=== PATIENT | female | born 1970 | race Caucasian/White ===

== ENCOUNTER 2016-11-17 09:00 | Outpatient (CLI) ==
--- NOTE | 2016-11-17 10:56 | MRI ---
EXAM: MRI lumbar spine without IV contrast. DATE: 11/17/2016. HISTORY: Low back pain, right-sided sciatica. TECHNIQUE: Sagittal and axial T1W and T2W sequences of the lumbar spine along with sagittal IR and c oronal T2W sequences were obtained using 1.2 Kasey magnet. No IV contrast. COMPARISON: LS spine series 09/19/2016. CT angiogram chest one June 2016.. FINDINGS: There are five [id number] lumbar vertebra. Minor leftward curvature of the lumbar sp ine is identified. A 2 mm anterior subluxation of L2 relative to L1 is evident. No other subluxatio n, acute fracture, osseous malignancy, or pars interarticularis defect is demonstrated. Prominent os teophytes are identified at T11-12 and L5-S1. Marked degenerative endplate changes, vacuum disc phen omenon and marked disc space narrowing are revealed at L5-S1. No sacral fracture or stress reaction is identified. SI joints are unremarkable. Conus medullaris terminates at L1. Visible spinal cord is normal. Several small retroperitoneal lymph nodes are seen. No retroperitoneal lymphadenopathy, paraspinal m ass, or aortic aneurysm is detected. Atherosclerotic plaques are present within the aortic wall. Pa raspinal musculature is symmetric bilaterally. Right lobe liver is greater than 16 cm in length, wit hout distinct focal mass. Spleen, adrenal glands, and kidneys reveal no definitive abnormality; lackey [place], breathing motion artifacts do limit sensitivity of these structures. Segmental analysis: T10-11: Left paramidline disc protrusion does not definitively contact the cord or cause central aristides nosis. T11-12: Normal. T12-L1: Normal. L1-2: Minimal anterior subluxation of L2 and small concentric disc bulge cause triangulation of the canal, minor right foraminal narrowing, and minor/mild left foraminal stenosis. L2-3: Minor left foraminal to far lateral disc bulge causes minor left foraminal encroachment. No c entral canal stenosis. L3-4: Minor concentric disc bulge, mild bilateral facet arthropathy, moderate ligamentum flavum hype rtrophy, and abundant dorsal epidural fat cause marked thecal sac narrowing and moderate narrowing at the opening to each foramen. L4-5: Small concentric disc bulge, mild right facet arthropathy, marked left facet arthropathy, mode rate ligamentum flavum hypertrophy, and bilateral paramidline T2W bright, T1W dark foci (3 x 1 x 3 mm right, 5 x 3.5 x 8 mm left) in the spinal canal cause severe central canal stenosis, mild right fora lani stenosis, and mild/moderate left foraminal stenosis. L5-S1: Moderate concentric disc bulge, small spondylotic ridge at the L5 inferior endplate, mild/mod erate facet arthropathy, and mild left facet arthropathy cause mild central canal stenosis and modera te narrowing at the opening to each foramen. Right L5 nerve root contacts the disc bulge near the la teral margin of the foramen. IMPRESSIONS: 1. Lumbar spine moderate spondylosis, mild/moderate facet arthropathy, and multilevel DDD. 2. Multilevel central canal stenoses (L1-2: Triangulation of canal. L3-4: Marked. L4-5: Severe. L 5-S1: Mild). 3. Multilevel foraminal stenoses as described. Right L5 nerve root contacts the disc bulge near the foramen, and may be a source for pain/radiculopathy. 4. Probable benign bilateral paramidline facet synovial cysts contributing to severe central canal s tenosis at L4-5. 5. Moderate/marked aortic atherosclerosis. 6. Hepatomegaly - etiology uncertain.
== END 2016-11-17 09:01 | disposition home or self-care (01) ==
LOC: RAD 09:00
PROVIDERS: ATTEND Registered Nurse
DX: M54.41 Lumbago with sciatica, right side (principal)